=== PATIENT | female | born 1990 | race Caucasian/White ===

== ENCOUNTER → 2021-05-18 14:10 | Outpatient (REF) | payer BC, SELFPAY | LOC: ANHLAB 14:10 | PROVIDERS: PCP Family Medicine; Visit Provider Nurse Practitioner | DX: C44.619 Basal cell carcinoma of skin of left upper limb, including shoulder (principal); C44.519 Basal cell carcinoma of skin of other part of trunk | CPT/HCPCS: 88305 ==

== ENCOUNTER 2022-05-06 12:59 | Outpatient (NON) | payer BC, SELFPAY | END 2022-05-06 13:00 | disposition home or self-care (01) | PROVIDERS: PCP Family Medicine; Visit Provider Nurse Practitioner | DX: C44.319 Basal cell carcinoma of skin of other parts of face (principal) | CPT/HCPCS: 88305 ==

== ENCOUNTER 2022-05-31 13:11 | Outpatient (NON) | payer BC, SELFPAY | END 2022-05-31 13:12 | disposition home or self-care (01) | LOC: ANHLAB 13:11 | PROVIDERS: PCP Family Medicine; Visit Provider Nurse Practitioner | DX: C44.319 Basal cell carcinoma of skin of other parts of face (principal) | CPT/HCPCS: 88305; 88331 ==

== ENCOUNTER 2022-10-07 12:09 | Outpatient (NON) | payer BC, SELFPAY | END 2022-10-07 12:10 | disposition home or self-care (01) | LOC: ANHLAB 10-08 12:11 | PROVIDERS: PCP Family Medicine; Visit Provider Nurse Practitioner | DX: C44.519 Basal cell carcinoma of skin of other part of trunk (principal) | CPT/HCPCS: 88305 ==

== ENCOUNTER 2024-03-12 10:51 | Outpatient (CLI) | payer BC, SELFPAY ==
--- NOTE | ~2024-03-12 | MM_ITS ---
EXAMINATION: MM scrn maira implant BI w humaira HISTORY: Screening mammogram TECHNIQUE: Craniocaudal and mediolateral oblique 3-D tomosynthesis images with implant displacement a nd synthetic 2-D images were generated. Craniocaudal and mediolateral oblique views of the breasts wi thout implant displacement were obtained using full field digital mammography. CAD analysis was submi tted and interpreted. COMPARISON: No prior mammogram is available for comparison at this institution. BREAST PARENCHYMAL COMPOSITION: The breasts are heterogeneously dense, which may obscure small masses . FINDINGS: There is no evidence of suspicious mass, calcification, or architectural distortion to sugg est malignancy in either breast. There has been no suspicious interval change. IMPRESSION: No mammographic evidence of malignancy. Recommend routine screening mammography in one year. BI-RADS Category 1: Negative Reviewed, dictated and finalized at [facility]. UNITY RELATIONS ASSISTANT
== END 2024-03-12 10:52 | disposition home or self-care (01) ==
LOC: ANHIMG 10:53
PROVIDERS: PCP Family Medicine; Visit Provider Surgery Plastic and Reconstructive Surgery
DX: Z12.31 Encounter for screening mammogram for malignant neoplasm of breast (principal)
CPT/HCPCS: 77063; 77067

== ENCOUNTER 2024-06-13 06:37 | Day surgery (SDC) | payer OTHER, SELFPAY ==
--- OUTSIDE RECORDS SUMMARY | 2024-06-13 08:50 | XMS_ITS | Clinical Summary ---
Author Organization [facility] Address [address] [place] [address] Care Team Providers Care Hplc Chemist Name Role Phone Karina Voss MD Primary Care Provider Allergies No known active allergies Medications vit no.[id number] c 27 mg iron- 1 mg tablet Take 1 tablet by mouth daily Active sertraline (ZOLOFT) 25 mg tablet Take 1 tablet (25 mg total) by mouth daily 12/20/2022 Active semaglutide (OZEMPIC) 1 mg/dose (2 mg/1.5 mL) pen injector injection Inject 1 mg under the skin every 7 days Active cholecalciferol (VITAMIN D-3) 2000 unit tablet Act issa ofloxacin (FLOXIN) 0.3 % otic solution every 6 hours 12/27/2018 Active phentermine (ADIPEX-P) 37.5 mg tablet daily 07/29/2019 Active valACYclovir (VALTREX) 1 gram tablet Take 2 tabs (2000 mg) 2 times a days for 1 day. 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 Immunizations Immunization Administration Dates Next Due Influenza, Unspecified 01/23/2019 Surgical History Surgery Date Site/Laterality Comments BREAST SURGERY CHOLECYSTECTOMY 2019 ABDOMINAL SURGERY 2019 Medical History Medical History Date Comments Gastric ulcer Adenoma of liver Anemia Depression 2020-PPD Family History Medical History Relation Name Comments Heart attack Maternal Grandfather Kirt Cassia Stroke Maternal Grandfather Kirt Cassia Anesthesia problems Neg Hx Relation Name Status Comments Maternal Grandfather Kirt Cassia Social History Tobacco Use Types Packs/Day Years Used Date Smoking Tobacco: Never Cigarettes Smokeless Tobacco: Never Tobacco Cessation:Counseling Given: Not Answered Alcohol Use Standard Drinks/Week Comments Yes 0 (1 standard drink = 0.6 oz pur e alcohol) 5 standard drinks in a week PHQ-2 Answer Date Recorded PHQ-2 Score 0 05/06/2019 Comments No Sex and Gender Information Value Date Recorded Sex Assigned at Not on file Legal Sex Female 4:31 PM YOUTH COUNSELOR Gender Identity Not on file Sexual Orientation Not on file Obstetrics History Last Filed Vital Signs Vital Sign Reading Time Taken Comments Blood Pressure 100/56 06/24/2023 8:18 AM YOUTH COUNSELOR Pulse 91 06/24/2023 8:18 AM YOUTH COUNSELOR Temperature 36.8 C (98.3 F) 06/24/2023 8:18 AM YOUTH COUNSELOR Respiratory Rate 20 06/24/2023 8:18 AM YOUTH COUNSELOR Oxygen Saturation 99% 06/24/2023 8:18 AM YOUTH COUNSELOR Inhaled Oxygen Concentration - - Weight 52.2 kg (115 lb) 06/24/2023 8:18 AM YOUTH COUNSELOR Height 154.9 cm (5' 1 ) 06/24/2023 8:18 AM YOUTH COUNSELOR Body Mass Index 21.73 06/24/2023 8:18 AM YOUTH COUNSELOR Plan of Treatment Health Maintenance Due Date Last Done Comments Cervical Cancer Screening 1988 Hepatitis C Screening 1988 Varicella Vaccines (1 of 2 - 13+ 2-dose series) 2001 Regular Well Visit/Exam 18-64 2006 Depression Screening 05/06/2020 05/06/2019, 05/06/19 20 Covid-19 Vaccine ( season) 2023 05/29/2020, 05/08/2020 Influenza Vaccine (#1) 2023 , 02/07/2019, 01/23/2019, Additional history exists DTaP/Tdap/Td Vaccine (8 - Td or Tdap) 11/23/2030 11/23/2020, 02/07/2019, 08/05/1993, Additional history exists HPV Vaccines Completed 02/09/2007, 09/23, 08/11/2006 Hepatitis B Screening Completed 08/24/2019 , 03/19/2019, 02/14/2019 Pneumococcal vaccine <65 Aged Out No longer eligible based on patient's age to complete this topic Medical Devices Implanted Type Area Mesh Worker Device Identifier Shelf Expiration Date Model / Serial / Lot Breast Bilateral: Breast Insurance [employer] [place] [employer] [place] Advance Directives For more information, please contact: [phone] * Full Code (Latest Code Status on File) Date Activated Date Inactivated Comments 05/06/2019 9:56 PM 05/12/2019 4:22 PM Care Teams Hplc Chemist Relationship Specialty Start Date End Date Jessy Gagen, Karina E., MD [address] [place] [id number] PCP - General Family Medicine 06/24/23
--- OUTSIDE RECORDS SUMMARY | 2024-06-13 08:50 | XMS_ITS | Patient Health Summary ---
Author Organization [facility] Address [address] [place] [address] Care Team Providers Care Workcell Operator Name Role Phone Unavailable Primary Care Provider Unavailabl e Note from [facility],non-owned Affiliates and Associated Physician Practices is amultiple site organization consisting of ambulatory clinics and hospital sitesin [place], [place], [place] and [place]. This disclosure is being madepursuant to the Care Everywhere program and may not contain all information available regarding this patient. Last updated 18.[facility] Allergies No known active allergies Immunizations * HEP B VACCINE, ADULT 3 DOSE(Given 08/24/2019, 03/19/2019, 02/14/2019) Social History Tobacco Use Types Packs/Day Years Used Date Smoking Tobacco: Never Assessed Sex and Gender Information Value Date Recorded Sex Assigned at Not on file Gender Identity Not on file Sexual Orientation Not on file Procedures * SARS-COV-2 (COVID-19) IN HOUSE(Performed 12/11/2019) Performed for Fever, unspecified fever cause, Neck ache, Nasal congestion, Cough * SKIN TEST PPD - POINT OF CARE(Performed 02/23/2019) Performed for Encounter for PPD test * SKIN TEST PPD - POINT OF CARE(Performed 02/16/2019) Performed for Need for vaccination Results * (ABNORMAL) SARS-COV-2 (COVID-19) IN HOUSE (12/11/2019 11:04 AM CDT) COVID-19 PCR Detected( AA) Not detected, Invalid 12/14/2019 12:34 AM CDT [facility] Microbiology SPECIMEN FROM NASOPHARYNGEAL STRUCTURE / Unknown Collection / Unknown 12/11/2019 11:04 AM CDT 12/11/2019 11:04 AM CDT Narrative [facility] - 12/14/2019 12:34 AM CDT This Real Time RT-PCR assay was developed and its performance characteristics determined by [facility]. This test has been authorized by the Food and Drug administration (FDA)under an Emergency Use Authorization (EUA). This test has been validated in accordance with the FDA's guidance document Policy for Diagnostic Testing in Laboratories Certified to perform High Complexity Testing under CLIA prior to Emergency Use Authorization for Coronavirus Disease-2019 during the Public Health Emergency issued on June 23, 2019. FDA independent review of this validation is pending. This test is only authorized for the duration of time the declaration that circumstances exist justifying the authorization of emergency use of in vitro diagnostic tests for detection of SARS-CoV-2 virus and/or diagnosis of COVID-19 infection under section 564(b)(1) of the Act, 21 U.S.C 360bbb-3 (b)(1), unless the authorization is terminated or revoked sooner. Karina Quiroga MD LAB - MICROBIOLOGY ORDERABLES [facility] [address] [place] [address], [facility] [phone] * (ABNORMAL) SKIN TEST PPD - POINT OF CARE (02/23/2019) Only the most recent of2 resultswithin the time period is included. PPD 0mm(Negati ve) Comment:negative ppd read Other MISCELLANEOUS SAMPLE S / Unknown 02/23/2019 Amrita Williamson GYM INSTRUCTOR-FIRER [facility] LAB - POINT OF CA RE ORDERABLES
--- OUTSIDE RECORDS SUMMARY | 2024-06-13 08:50 | XMS_ITS | Patient Health Record ---
Author Organization [facility] Planning Address [address] [place] [id number] Care Team Providers Care Hole Puncher Strap Name Role Phone Dayanara Jones Primary Care Provider [phone] Reason For Referral No Information Medications Medication SIG (Take, Route, Frequency, Duration) Notes Start Date End Date Status Phentermine HCl 37.5 MG 1 tablet Orally Once a day for 30 days 07/29/2019 Active valACYclovir HCl 1 GM 2 tablet Orally no w and repeat in 12 hours for 1 days 09/30/2017 Not-Taking Amoxicillin-Pot Clavulanate 875-125 MG 1 tablet Orally every 12 hrs for 7 days 03/12/2019 Active Zantac 300 MG 1 tablet Orally ever y morning for 30 Active Sprintec 28 0.25-35 MG-MCG 1 tablet Orally Once a day for 28 days Active Ofloxacin 0.3 % 1 drop into affected eye Ophthalmic Four times a day for 7 days 12/27/2018 Active Diflucan 150 MG 1 tablet Orally now and repeat in 1 week for 14 days 12/14/2017 Active Hair/Skin/Nails Orally Acti ve Pepcid 20 MG 1 tablet at bedtime as needed Orally Once a day for 30 day(s) 03/14/2019 Active LORazepam 0.5 MG 1 tablet as needed Orally every 12 to 24 hours for 30 days 06/03/2016 Not-Taking Dexilant 60 MG 1 capsule Orally jyotsna ry evening for 30 days 09/30/2014 Not-Taking Diflucan 150 MG 1 tablet Orally once now and repeat in 72 hours for 3 days 11/08/2017 Active Macrobid 100 MG 1 capsule with food Orally every 12 hrs for 7 day(s) Active Immunizations Vaccine Route Administration Date Status Comme nts Non VFC Fluzone w/preserv 6mo & up IM Intramuscular 04/10/2018 Administered Social History Tobacco Use: Social History Observation Description Date Details (start date - stop date) Never Smoker NA - NA Tobacco Use/Smoking Question Answer Notes Are you a nonsmoker Alcohol Screen (Audit-C) Question Answer Notes Did you have a drink contain ing alcohol in the past year? Yes How often did you have a dri nk containing alcohol in the past year? 2 to 4 times a month (2 points) How many drinks did you have on a typical day when you were drinking in the past year? 1 or 2 drinks (0 point) How often did you have 6 or more drinks on one occasion in the past year? Never (0 point) Points 2 Problems Problem Type SNOMED Code ICD Code Onset Dates Problem Status W/U Status Risk Notes Problem 87640639 Anxiety (F41.9) Active confirmed Problem 881001602 Dyspepsia (R10.13) Active confirmed Plan Of Treatment No Information Medical (General) History Medical History History ICD Code cosmetic surgery(2007) dental surgery(2006) Surgical History Surgery Date(Month/Year) Breast augmentation 2007 dental surgery 2006
--- OUTSIDE RECORDS SUMMARY | 2024-06-13 08:50 | XMS_ITS | Clinical Summary ---
Author Organization [facility] Address [address] [place] [id number] Care Team Providers Care Tugboat Mate Name Role Phone Karina Voss MD Primary Care Provider + Allergies No known active allergies Medications vitamin 27-1 MG Tab tablet Take 1 tablet by mouth daily. Active sertraline (ZOLOFT) 25 MG tablet Take 1 tablet (25 mg total) by mouth daily. 4 Active Ferrous Sulfate (IRON OR) Take 1 tablet by mouth daily. Active Vitamin D3 (VITAMIN D) 50 mcg tablet Take 0.5 tablets (25 mcg total) by mouth daily. Active valACYclovir (VALTREX) 500 MG tablet TAKE 1 TABLET BY MOUTH TWICE DAILY START TAKING 48 HOURS BEFORE PROCEDURE 4 Active azithromycin (ZITHROMAX) 250 MG tabletIndicatio ns:Sore throat,Bronchit is Take 2 tablets by mouth on day one then 1 daily for four days. 6 tablet 4 Active Active Problems Problem Noted Date Diagnosed Date ([facility]) 02/06/2021 Unspecified screening ([facility]) 2020 Encounters Date Type Department Care Team Description 04/13/2024 7:00 AM OAKES MACHINE OPERATOR Office Visit [facility] Family & Internal Medicine [address] [address] Vanessa Rivas, [place] URI (Congestion, cough, sore throat x 1 week ) 04/13/2024 Travel from Last 3 Months Immunizations Name Administration Dates Next Due Dtp 08/05/1993, 0,1988,10/07,1988 FLUCELVAX (ccIIV3, TRIVALENT, 0.5mL) 02/13/2024 Flucelvax 6 Months+ (Prefill ed Syringe) 06/01/2017 HPV4 (Gardasil) 02/09/2007,10/11/2006,08/11/2006 Hepatitis B (Generic: Adult) 08/24/2019,03/19/20 19,02/14/2019 Hib (Generic) 01/12/1990 Influenza (Afluria - Preserv ative Free) 03/04/2015 Influenza (Generic) 01/23/2019, 8,03/04/2015,02/21 Influenza Adult (Generic) 01/14/2021,,02/07/2019,04/10,06/01/2017,02/12/2016 MMR 08/05/1993,10/13/1989 Meningococcal (Generic) 03/09/2006 Opv 08/05/1993, 0,1988,10/07,1988 Polio Opv (Generic) 08/05/1993, 0,1988,10/07,1988 Tdap (Adacel) 02/07/2019 Tdap (Generic) 11/23/2020 Family History Medical History Relation Comments None Father Heart Disease Maternal Grandfather Hypertension Maternal Grandmother None Mother Heart Disease Paternal Grandfather None Sister 1 None Sister 2 Relation Status Comments Father Alive Maternal Grandfather Maternal Grandmother Mother Alive Paternal Grandfather Sister 1 Alive Sister 2 Alive Social History Tobacco Use Types Packs/Day Years Used Date Smoking Tobacco: Never Smokeless Tobacco: Never Tobacco Cessation:Counseling Given: No Alcohol Use Standard Drinks/Week Comments Not Currently 0 (1 standard drink = 0.6 oz pur e alcohol) AUDIT-C Answer Date Recorded Frequency of Alcohol Consumption Never 05/06/2019 Average Number of Drinks Not on file 020 Frequency of Binge Drinking Not on file 04/25 PHQ-2 Answer Date Recorded Patient Health Questionnaire-2 Score 0 04/13/2024 Comments No Sex and Gender Information Value Date Recorded Sex Assigned at Not on file Legal Sex Female 2:13 PM OAKES MACHINE OPERATOR Gender Identity Not on file Sexual Orientation Not on file Last Filed Vital Signs Vital Sign Reading Time Taken Comments Blood Pressure 93/63 04/13/2024 6:58 AM OAKES MACHINE OPERATOR Pulse 84 04/13/2024 6:58 AM OAKES MACHINE OPERATOR Temperature 36.2 C (97.1 F) 04/13/2024 6:58 AM OAKES MACHINE OPERATOR Respiratory Rate 18 04/13/2024 6:58 AM OAKES MACHINE OPERATOR Oxygen Saturation 96% 04/13/2024 6:58 AM OAKES MACHINE OPERATOR Inhaled Oxygen Concentration - - Weight 52.1 kg (114 lb 12.8 oz) 04/13/2024 6:58 AM OAKES MACHINE OPERATOR Height 154.9 cm (5' 1 ) 04/13/2024 6:58 AM OAKES MACHINE OPERATOR Body Mass Index 21.69 04/13/2024 6:58 AM OAKES MACHINE OPERATOR Plan of Treatment Health Maintenance Due Date Last Done Comments Cervical Cancer Screening Pap Smear (Age 30 to 64) Every 3 Years 1988 Annual Physical 1991 Hepatitis C 2006 Cervical Cancer Screening Pap with HPV Testing (Age 30 to 64) Every 5 Years 2018 Cervical Cancer Screening with HPV 2018 COVID-19 Vaccine ( season) 2023 01/27/2021, 05/29/2020, 05/08/2020 PHQ-2 (Physician Ava) 04/25/2024 04/13/2024 PHQ-2 (Physician Ava) 04/13/2025 04/13/2024 DTaP, Tdap and Td Vaccines (3 - Td or Tdap) 11/23/2030 11/23/2020, 02/07/2019, 08/05/1993, Additional history exists Meningococcal Vaccine Aged Out 03/09/2006 No logan shirlene eligible based on patient's age to complete this topic HPV Vaccines Completed 02/09/2007, 09/23, 08/11/2006 Hepatitis B Vaccines Completed 08/24/2019, 03/19/2019, 02/14/2019 Influenza Adult Completed 02/13/2024, 12/25, 02/11/2020, Additional history exists Meningococcal B Vaccine Aged Out No l onger eligible based on patient's age to complete this topic Pneumococcal Vaccine: Pediatrics (0 to 5 Years) and At-Risk Patients (6 to 64 Years) Aged Out No longer eligible based on patient's age to complete this topic RSV Immunizations Under 20 Months Aged Out No longer eligible based on patient's age to complete this topic Insurance Advance Directives * Full Code (Latest Code Status on File) Date Activated Date Inactivated Comments 02/06/2021 8:09 PM 02/07/2021 10:22 PM Care Teams Tugboat Mate Relationship Specialty Start Date End Date Karina Voss MD [address] [place] [address] PCP - General FAMILY PRACTICE 08/25/20
--- OUTSIDE RECORDS SUMMARY | 2024-06-13 08:50 | XMS_ITS | Referral Summary ---
Author Organization [facility] Address [address] [place] [address] Care Team Providers Care Flatwork Tier Name Role Phone Karina Voss MD Primary Care Provider Allergies No known active allergies Medications vit no.191-[id number] c 27 mg iron- 1 mg tablet [...] Administration Dates Next Due Influenza, Unspecified 01/23/2019 Social History Tobacco Use Types Packs/Day Years [...] on file Legal Sex Female 4:31 PM SPORTS EDITOR Gender Identity Not on file Sexual Orientation Not on file Last Filed Vital Signs Vital Sign Reading Time Taken Comments Blood Pressure 100/56 06/24/2023 8:18 AM SPORTS EDITOR Pulse 91 06/24/2023 8:18 AM SPORTS EDITOR Temperature 36.8 C (98.3 F) 06/24/2023 8:18 AM SPORTS EDITOR Respiratory Rate 20 06/24/2023 8:18 AM SPORTS EDITOR Oxygen Saturation 99% 06/24/2023 8:18 AM SPORTS EDITOR Inhaled Oxygen Concentration - - Weight 52.2 kg (115 lb) 06/24/2023 8:18 AM SPORTS EDITOR Height 154.9 cm (5' 1 ) 06/24/2023 8:18 AM SPORTS EDITOR Body Mass Index 21.73 06/24/2023 8:18 AM SPORTS EDITOR Plan of Treatment Not on file Medical Devices Implanted Type Area Cabinet Mounter Device Identifier Shelf Expiration Date Model / Serial / Lot Breast Bilateral: Breast Insurance [employer] [place] [employer] [place] Advance Directives For more information, please contact: [phone] * Full Code (Latest Code Status on File) Date Activated Date Inactivated Comments 05/06/2019 9:56 PM 05/12/2019 4:22 PM Care Teams Flatwork Tier Relationship Specialty Start Date End Date Karina Voss MD [address] [place], [place] [id number] PCP - General Family Medicine 06/24/23
--- OUTSIDE RECORDS SUMMARY | 2024-06-13 08:50 | XMS_ITS | Referral Summary ---
Author Organization [facility] Address [address] [place] [address] Care Team Providers Care Client Coordinator Name Role Phone Unavailable Primary Care Provider Unavailabl e Source Comments [facility],non-owned Affiliates and Associated Physician Practices is amultiple site organization consisting of ambulatory clinics and hospital sitesin [place], [place], [place] and [place]. This disclosure is being madepursuant to the Care Everywhere program and may not contain all information available regarding this patient. Last updated 18.[facility] [employer] Allergies No known active allergies Immunizations Name Administration Dates Next Due HEP B VACCINE, ADULT 3 DOSE 08/24/2019,,02/14/2019 Social History Tobacco Use Types Packs/Day Years Used Date Smoking Tobacco: Never Assessed Sex and Gender Information Value Date Recorded Sex Assigned at Not on file Gender Identity Not on file Sexual Orientation Not on file Plan of Treatment Not on file Administered Medications
--- OUTSIDE RECORDS SUMMARY | 2024-06-13 08:50 | XMS_ITS | Encounter Summary ---
Author Organization [facility] Address [address] [place] [address] Care Team Providers Care Soil Conservationist Name Role Phone Karina Voss MD Primary Care Provider + Encounter Details Date Type Department Care Team (Late st Contact Info) Description 12/03/2020 Therapy Plan [facility] [address] [place], [place] [id number] Yolis Cody MD [address] [place] [address] Social History Tobacco Use Types Packs/Day Years Used Date Smoking Tobacco: Never Smokeless Tobacco: Never Alcohol Use Standard Drinks/Week Comments Yes 0 (1 standard drink = 0.6 oz pur e alcohol) socially AUDIT-C Answer Date Recorded Frequency of Alcohol Consumption Never 05/06/2019 Average Number of Drinks Not on file 020 Frequency of Binge Drinking Not on file 04/25 Comments No Sex and Gender Information Value Date Recorded Sex Assigned at Not on file Legal Sex Female 2:13 PM ABSTRACT CLERK Gender Identity Not on file Sexual Orientation Not on file COVID-19 Exposure Response Date Recorded In the last month, have you been in contact with someone who was confirmed or suspected to have Coronavirus / COVID-19? No / Unsure 12/03/2020 1:59 PM CDT documented as of this encounter Plan of Treatment Not on file documented as of this encounter Visit Diagnoses Not on filedocumented in this encounter Care Teams Soil Conservationist Relationship Specialty Start Date End Date Karina Voss MD [address] [place] [id number] PCP - General FAMILY PRACTICE 08/25/20 documented as of this encounter
--- OUTSIDE RECORDS SUMMARY | 2024-06-13 08:50 | XMS_ITS | Clinical Summary ---
Author Organization [facility] Address [address] [place] [address] Care Team Providers Care Electrician'S Assistant Name Role Phone Unavailable Primary Care Provider Unavailabl e Source Comments [facility],non-owned Affiliates and Associated Physician Practices is amultiple site organization consisting of ambulatory clinics and hospital sitesin [place], [place], [place] and [place]. This disclosure is being madepursuant to the Care Everywhere program and may not contain all information available regarding this patient. Last updated 18.[facility] [employer] Allergies No known active allergies Immunizations Name Administration Dates Next Due HEP B VACCINE, ADULT 3 DOSE 08/24/2019,,02/14/2019 Social History Tobacco Use Types Packs/Day Years Used Date Smoking Tobacco: Never Assessed Sex and Gender Information Value Date Recorded Sex Assigned at Not on file Gender Identity Not on file Sexual Orientation Not on file Plan of Treatment Health Maintenance Due Date Last Done Comments PAP SMEAR 1988 HIV SCREENING 2003 HEPATITIS C SCREENING 05/20/2006 DTAP/TDAP/TD VACCINES (1 - Tdap) 2007 COVID-19 VACCINE (2023-2 5 season) 2023 INFLUENZA VACCINE (#1) 2023 01/23/2019 DEPRESSION SCREENING 04/25/2024 ZOSTER VACCINE (1 of 2) 2038 HEPATITIS B VACCINE Completed 08/24/2019, 03/19/2019, 02/14/2019 HIB VACCINE Aged Out No longer eligi ble based on patient's age to complete this topic HPV VACCINE Aged Out No longer eligi ble based on patient's age to complete this topic MENINGOCOCCAL (Group B) VACCINE Aged Out No longer eligible b ased on patient's age to complete this topic MENINGOCOCCAL VACCINE Aged Out No olgan shirlene eligible based on patient's age to complete this topic PNEUMOCOCCAL VACCINE Aged Out No long er eligible based on patient's age to complete this topic
== END 2024-06-13 06:38 | disposition home or self-care (01) ==
PROVIDERS: PCP Family Medicine; Visit Provider Surgery Plastic and Reconstructive Surgery
DX: Z41.1 Encounter for cosmetic surgery (principal)
CPT/HCPCS: 19325; 19328

== ENCOUNTER 2024-06-13 12:59 | Day surgery (SDC) | payer OTHER, SELFPAY ==
[2024-06-13] VITALS (9 sets, daily range): BP systolic 96–116; BP diastolic 41–76; PULSE 74–107; RESP 12–20; TEMP 36.3–37.2; O2SAT 100; BMI 20.7
--- NOTE | 2024-06-13 09:39 | PC.NURSE ---
Report to the Outpatient Waiting Room, entrance under the green pavilion located off [facility], at time _1300__ on date 06/13/24_. Planned Procedure Time: __1500 .? Time changes happen often and if your time is changed the preop area will call you the afternoon before. - You and your visitor will be asked to self-screen and do not enter if you have any COVID symptoms. Please call surgeon if you need to reschedule. - A mask is optional within the hospital at this time. Patients may have clear liquids (water, carbonated beverages, clear teas, apple juice) until 3 hours prior to surgery with a maximum of 20 ounces. - No food from midnight until time of surgery and no smoking, or chewing tobacco (or any form of nicotine). No chewing gum, candy or mints. - Infants may have breast milk until 4 hours before surgery, formula 6 hours prior to surgery. - Children will be allowed to drink immediately following surgery.? If applicable, please bring a bottle or sippy cup to assist with drinking. Juice, water, soda, and popsicles are readily available.? For infants on formula, please bring formula the day of surgery.? Pacifiers are allowed. Take only the following medications with a SIP of water on the morning of surgery: ____SERTRALINE DO NOT STOP ANY OF YOUR OTHER PRESCRIPTION MEDICATIONS PRIOR TO SURGERY EXCEPT THE FOLLOWING Hold all vitamins and supplements for 3 days per anesthesiologist. Please no make-up, nail maltese, hairspray, perfume, deodorant, or body powder the day of surgery.? No jewelry (including any body piercings) or valuables the day of surgery, leave them at home.? Please take a shower or bath the night before, or the morning of, surgery with an antibacterial soap.? Wear comfortable, loose fitting clothing.? Children are encouraged to wear pajamas. - Jewelry must be removed prior to entering the operating room.? Rings and piercings that are not removed may be cut off. - The hospital will not accept responsibility for valuables.? - Please leave all valuables, including medications, at home the day of surgery. If you are going home after surgery, a licensed bulk truck driver must drive you home.? - NO public transportation without another adult if you receive anesthesia. - We recommend that an adult stay with you for 24 hours following discharge. - We also recommend that you do not drive, make important decision, drink alcoholic beverages, or take any drugs that were not prescribed by your health care provider for at least 24 hours after your discharge time. For Pediatric surgeries, we recommend two adults accompany the child home. Follow any additional instructions given to you from your surgeon. Telephone instructions given to _PATIENT__and asked if any additional questions and then verbalized understanding. Patient advised to call surgeon office or pre surgery nurse liaison [phone] if any additional questions.
--- OUTSIDE RECORDS SUMMARY | 2024-06-13 13:07 | XMS_ITS | Encounter Summary ---
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
--- OUTSIDE RECORDS SUMMARY | 2024-06-13 13:07 | XMS_ITS | Clinical Summary ---
Author Organization [facility] Address [address] [place] [address] Care Team Providers Care Audit Control Clerk Name Role Phone Karina Voss MD Primary [...] Active Problems Problem Noted Date Diagnosed Date ([facility]) 02/06/2021 Unspecified screening ([facility]) 2020 Encounters Date Type Department Care Team Description 04/13/2024 7:00 AM CUSTOMER ENGAGEMENT ANALYST Office Visit [facility] Family & Internal Medicine [address] [address] Vanessa Rivas, PA URI (Congestion, [...] on file Legal Sex Female 2:13 PM CUSTOMER ENGAGEMENT ANALYST Gender Identity Not on file Sexual Orientation Not on file Last Filed Vital Signs Vital Sign Reading Time Taken Comments Blood Pressure 93/63 04/13/2024 6:58 AM CUSTOMER ENGAGEMENT ANALYST Pulse 84 04/13/2024 6:58 AM CUSTOMER ENGAGEMENT ANALYST Temperature 36.2 C (97.1 F) 04/13/2024 6:58 AM CUSTOMER ENGAGEMENT ANALYST Respiratory Rate 18 04/13/2024 6:58 AM CUSTOMER ENGAGEMENT ANALYST Oxygen Saturation 96% 04/13/2024 6:58 AM CUSTOMER ENGAGEMENT ANALYST Inhaled Oxygen Concentration - - Weight 52.1 kg (114 lb 12.8 oz) 04/13/2024 6:58 AM CUSTOMER ENGAGEMENT ANALYST Height 154.9 cm (5' 1 ) 04/13/2024 6:58 AM CUSTOMER ENGAGEMENT ANALYST Body Mass Index 21.69 04/13/2024 6:58 AM CUSTOMER ENGAGEMENT ANALYST Plan of Treatment Health Maintenance Due Date Last Done Comments Cervical Cancer Screening Pap Smear (Age 30 to 64) Every 3 Years 1988 Annual Physical 1991 Hepatitis C 2006 Cervical Cancer Screening Pap with HPV Testing (Age 30 to 64) Every 5 Years 2018 Cervical Cancer Screening with HPV 2018 COVID-19 Vaccine ( season) 2023 01/27/2021, 05/29/2020, 05/08/2020 PHQ-2 ([facility]) 04/25/2024 04/13/2024 PHQ-2 ([facility]) 04/13/2025 04/13/2024 DTaP, Tdap and Td Vaccines [...] 8:09 PM 02/07/2021 10:22 PM Care Teams Audit Control Clerk Relationship Specialty Start Date End Date Karina Voss MD [address] [place] [address] PCP - General FAMILY PRACTICE 08/25/20
--- OUTSIDE RECORDS SUMMARY | 2024-06-13 13:07 | XMS_ITS | Patient Health Summary ---
Author Organization [facility] Address [address] [place] [address] Care Team Providers Care Agriculturist Name Role Phone Unavailable Primary Care Provider Unavailabl e Note from [facility],non-owned Affiliates and Associated Physician Practices is amultiple site organization consisting of ambulatory clinics and hospital sitesin [place], [place], [place] and [place]. This disclosure is being madepursuant to the Care Everywhere program and may not contain all information available regarding this patient. Last updated 18.[facility] Allergies No known active allergies Immunizations * [...] AM CDT 12/11/2019 11:04 AM CDT Narrative [facility] - 12/14/2019 12:34 AM CDT This Real Time RT-PCR assay was developed and its performance characteristics determined by [facility]. This test has been authorized [...] Karina Quiroga MD LAB - MICROBIOLOGY ORDERABLES [facility] [address] [place] [address], [facility] [phone] * (ABNORMAL) SKIN TEST PPD - POINT OF CARE (02/23/2019) Only the most recent of2 resultswithin the time period is included. PPD 0mm(Negati ve) Comment:negative ppd read Other MISCELLANEOUS SAMPLE S / Unknown 02/23/2019 Amrita Williamson ENGINE REPAIR SUPERVISOR-DATA COLLECTION TECHNICIAN LAB - POINT OF CA RE ORDERABLES
--- OUTSIDE RECORDS SUMMARY | 2024-06-13 13:07 | XMS_ITS | Clinical Summary ---
Author Organization [facility] Address [address] [place] [address] Care Team Providers Care Solutions Executive Security Name Role Phone Unavailable Primary Care Provider Unavailabl e Source Comments [facility],non-owned Affiliates and Associated Physician Practices is amultiple site organization consisting of ambulatory clinics and hospital sitesin [place], [place], [place] and [place]. This disclosure is being madepursuant to the Care Everywhere program and may not contain all information available regarding this patient. Last updated 18.[facility] Allergies No known active allergies Immunizations Name [...] this topic MENINGOCOCCAL VACCINE Aged Out No logan shirlene eligible based on patient's age to complete this topic PNEUMOCOCCAL VACCINE Aged Out No long er eligible based on patient's age to complete this topic
--- OUTSIDE RECORDS SUMMARY | 2024-06-13 13:07 | XMS_ITS | Referral Summary ---
Author Organization [facility] Address [address] [place] [address] Care Team Providers Care Internet Marketing Specialist Name Role Phone Unavailable Primary Care Provider Unavailabl e Source Comments [facility],non-owned Affiliates and Associated Physician Practices is amultiple site organization consisting of ambulatory clinics and hospital sitesin [place], [place], [place] and [place]. This disclosure is being madepursuant to the Care Everywhere program and may not contain all information available regarding this patient. Last updated 18.[facility] Allergies No known active allergies Immunizations Name [...]
--- OUTSIDE RECORDS SUMMARY | 2024-06-13 13:08 | XMS_ITS | Clinical Summary ---
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 Gender Identity Not on file Sexual Orientation Not on file Obstetrics History Last Filed Vital Signs Vital Sign Reading Time Taken Comments Blood Pressure 100/56 06/24/2023 8:18 AM EYEGLASS FRAMES POLISHER Pulse 91 06/24/2023 8:18 AM EYEGLASS FRAMES POLISHER Temperature 36.8 C (98.3 F) 06/24/2023 8:18 AM EYEGLASS FRAMES POLISHER Respiratory Rate 20 06/24/2023 8:18 AM EYEGLASS FRAMES POLISHER Oxygen Saturation 99% 06/24/2023 8:18 AM EYEGLASS FRAMES POLISHER Inhaled Oxygen Concentration - - Weight 52.2 kg (115 lb) 06/24/2023 8:18 AM EYEGLASS FRAMES POLISHER Height 154.9 cm (5' 1 ) 06/24/2023 8:18 AM EYEGLASS FRAMES POLISHER Body Mass Index 21.73 06/24/2023 8:18 AM EYEGLASS FRAMES POLISHER Plan of Treatment Health Maintenance Due Date [...] this topic Medical Devices Implanted Type Area Medtronics Technician Device Identifier Shelf Expiration Date Model / Serial / Lot Breast Bilateral: Breast Insurance [employer] [place] [employer] [place] Advance Directives For more information, please contact: [phone] * Full Code (Latest Code Status on File) Date Activated Date Inactivated Comments 05/06/2019 9:56 PM 05/12/2019 4:22 PM Care Teams Bioprocess Engineer Relationship Specialty Start Date End Date Jessy Gagen, Karina E., MD [address] [place] [id number] PCP - General Family Medicine 06/24/23
--- OUTSIDE RECORDS SUMMARY | 2024-06-13 13:08 | XMS_ITS | Referral Summary ---
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 Gender Identity Not on file Sexual Orientation Not on file Last Filed Vital Signs Vital Sign Reading Time Taken Comments Blood Pressure 100/56 06/24/2023 8:18 AM EMERGENCY ROOM TECHNICIAN Pulse 91 06/24/2023 8:18 AM EMERGENCY ROOM TECHNICIAN Temperature 36.8 C (98.3 F) 06/24/2023 8:18 AM EMERGENCY ROOM TECHNICIAN Respiratory Rate 20 06/24/2023 8:18 AM EMERGENCY ROOM TECHNICIAN Oxygen Saturation 99% 06/24/2023 8:18 AM EMERGENCY ROOM TECHNICIAN Inhaled Oxygen Concentration - - Weight 52.2 kg (115 lb) 06/24/2023 8:18 AM EMERGENCY ROOM TECHNICIAN Height 154.9 cm (5' 1 ) 06/24/2023 8:18 AM EMERGENCY ROOM TECHNICIAN Body Mass Index 21.73 06/24/2023 8:18 AM EMERGENCY ROOM TECHNICIAN Plan of Treatment Not on file Medical Devices Implanted Type Area Cushion Sewer Device Identifier Shelf Expiration Date Model / Serial / Lot Breast Bilateral: Breast Insurance [employer] [place] [employer] [place] Advance Directives For more information, please contact: [phone] * Full Code (Latest Code Status on File) Date Activated Date Inactivated Comments 05/06/2019 9:56 PM 05/12/2019 4:22 PM Care Teams Screwdown Operator Relationship Specialty Start Date End Date Karina Voss MD [address] [place], [place] [id number] PCP - General Family Medicine 06/24/23
[2024-06-13] MEDS: LACTATED RINGERS 1,000 ML 30 ML IV CONT ×2 (13:35→16:13)
[2024-06-13] MEDS: TRANEXAMIC ACID 1,000MG/ISO100 1,000 MG/100 ML BAG 200 MG IVPB (14:16)
--- NOTE | 2024-06-13 14:52 | P.OP_ITS ---
Procedure Note - Detailed Date of Procedure 06/13/24 Pre-op Diagnosis hx breast augmentation Post-op Diagnosis Same Procedure Performed Bilateral breast implant exhcnage Surgeon Lamin Cervantes MD Anesthesia General Findings Previous implants: Allergan Style 168 (textured) - 240cc New implants: Allergan Irmae Inspira SoftTouch 360cc Right: REF# [id number] Left: REF# [id number] Description of Procedure Preoperatively the risks, benefits, alternatives were discussed in extensive detail. I wanted to be very realistic about the risks involved as well as expectations. She would like to proceed with Allergan implants. I was clear a bout how we could actually make her worse. Answered all questions to satisfaction. Voiced a clear understanding. Consent obtained. She was taken the operating room placed supine on the operating room table. Anesthesia provided by anesthesiology and prepped and draped in a standard sterile fashion. Surgical time-out was taken. 1% lidocaine and 0.25% Marcaine with epinephrine was used to provide a field block. Tegaderm nipple schultz were placed. Fifteen blade used to excise the previous IMF scars. Dissection was continued down until the capsules were identified, entered, and implants removed. I then copiously irrigated with 3 L of saline solution on TUR tubing. Verified strict hemostasis. I then irrigated with Betadine containing solution. Using a no-touch technique and a Wu funnel the implant was introduced into the pocket. This was closed with 2-0 PDS followed by 3-0 Monocryl and a running subcuticular 4-0 Monocryl followed by tissue glue. Dressings were placed. She was woken taken to the PACU without difficulty. All instrument sponge counts were correct at the end of the case. Estimated Blood Loss 20 Drains No Packing No Pathology None sent Complications No immediate complications Condition Stable Disposition PACU
--- NOTE | 2024-06-13 14:52 | WPDHPUPDATE1 ---
History and Physical Update Update Date/Time: 06/13/24 14:52 History and Physical has been reviewed, including an updated exam of the patient. There are NO changes in the patient's condition. Risks, benefits, and alternatives have been discussed and questions answered. Patient agrees to proceed with procedure.
--- NOTE | 2024-06-13 14:56 | P.PNAN_ITS ---
Anes - Initial Pre Proc Eval Procedure: Operation Date: 06/13/24 15:00 Proposed Procedures p Bilateral Breast Implant Exchange, Possible Capsulectomy - Lamin Cervantes MD Date/Time: 06/13/24 14:56 Surgeon: Lamin Cervantes MD Pre Op Diagnosis: hx breast augmentation Patient Data Age: 34 Gender: F Height: 1.55 m Weight: 49.85 kg Last Vital Signs Temp 98.9 F 06/13/24 13:05 Pulse 79 06/13/24 13:05 Resp 16 06/13/24 13:05 BP 98/66 L 06/13/24 13:05 Pulse Ox 100 06/13/24 13:05 O2 Del Method Room Air 06/13/24 13:05 Allergies Allergy/AdvReac Type Severity Reaction Status Date / Time No Known Allergies Allergy Verified 06/13/24 13:47 Home Medications ?Medication ?Instructions ?Recorded ?Confirmed ?Type prenat.vits,estelita,kvr-nfsp-rhsdl 1 tablet PO DAILY 05/18/21 06/13/24 History sertraline 25 mg tablet (Zoloft) 50 mg PO DAILY 05/18/21 06/13/24 History nadide (bulk) 100 % powder ea miscellaneous 01/03/23 History (Nicotinamide Adenine Dinucleotide (NAD)) cholecalciferol (vitamin D3) 50 50 mcg PO DAILY 05/25/24 06/13/24 History mcg (2,000 unit) capsule (Vitamin D3) zinc 50 mg capsule 50 mg PO DAILY 05/25/24 06/13/24 History Patient hx anesthesia problems: none Family hx anesthesia problems: none Results Review: All pre-operative results and documents have been reviewed as part of the pre- operative evaluation. [facility] Past Medical History Medical History Hepatic adenoma Surgical History Surgical History H/O breast augmentation Family History Family History Unknown Asthma Depression Skin cancer Kidney disorder Social History Social History Smoking status: Never smoker Second hand tobacco smoke exposure: No Alcohol intake: current Drinks per week: 3 Substance use: never Substance use type: does not use Living arrangements: with family Occupation/Education: occupation Additional occupation/education comments: RN- [employer] Gender identity (if verbalized by the patient): Female Spiritual care concerns: No Anes - Eval Final PreProcedure Day of Procedure 06/13/24 14:56 Patient weight: normal and thin Lungs: normal air movement Airway: Mallampati scale class 1 Neurological: alert and oriented Last oral intake: >/= 8 hours ASA classification: I Emergent: no Anesthetic plan: proceed Anesthesia type and monitoring: general LMA and standard monitoring Results Review: All pre-operative results and documents have been reviewed as part of the pre- operative evaluation. Pt had a hepatic adenoma rupture approx 2019, transfused, resected at [place], only treatment was resection. Otherwise, excellent health. Informed Consent: The patient's anesthetic plan and its attendant risks and benefits were discussed with the patient/family/POA. Questions were solicited and answers provided to the satisfaction of the patient/family/POA.
[2024-06-13] MEDS: LIDO 1%/EPINEPHRINE 1:100,000 50 ML VIAL 30 ML INFILTRATE (15:00)
[2024-06-13] MEDS: BUPivacaine HCL 0.25% PF 30 ML VIAL INFILTRATE (15:00)
[2024-06-13] MEDS: ceFAZolin 2 GM/D5W 50 ML 2 GM/50 ML BAG IVPB (15:10)
[2024-06-13] MEDS: NACL 0.9% IRRIG POUR BOTTLE 900 ML, GENTAMICIN SULFATE INJ 160 MG, ceFAZolin 2 GM, POVI... IRRIGATION (15:26)
[2024-06-13] MEDS: fentaNYL CITRATE INJ (*CRX) 100 MCG/2 ML VIAL 25 MCG IV PUSH (16:27)
[2024-06-13] MEDS: oxyCODONE HCL (*CRX) 5 MG TAB IR PO (17:30)
== END 2024-06-13 17:48 | disposition home or self-care (01) ==
PROVIDERS: PCP Family Medicine; Visit Provider Surgery Plastic and Reconstructive Surgery
PROC: (CPT 19342; principal; 2024-06-13 15:00)
DX: Z41.1 Encounter for cosmetic surgery (principal); Z98.890 Other specified postprocedural states; Z85.828 Personal history of other malignant neoplasm of skin; Z84.0 Family history of diseases of the skin and subcutaneous tissue
CPT/HCPCS: 19370; 19325; A9270; J0690; J1100; J1171; J1200; J1580; J2004; J2250; J2405; J2704; J3010; J7120